=== PATIENT | male | born 1990 | race Caucasian/White ===

== ENCOUNTER 2023-12-27 20:31 | Emergency (ER) | payer MEDICAID ==
[~2023-12-27 20:31] MED LIST: AMOXICILLIN500 MG PO; NORCO 5-325 TA1 EACH PO
[2023-12-27] MEDS ORDERED: KETOROLAC TROMETHAMINE 60 MG/2 ML VIAL IM ONE (21:00)
[2023-12-27 21:01] LABS: BASOPHILS 0.7 % (0-2); EOSINOPHILS 1.6 % (0-6); HEMATOCRIT 49.4 % (35.0-50.0); HEMOGLOBIN 16.7 g/dL (12.0-18.0); LYMPHOCYTES 40.5 % (24-44); MCH 28.8 (27-36); MCHC 33.8 g/dl (30-36); MCV 85.3 fl (81-99); MONOCYTES 6.5 % (0-12); NEUTROPHILS 50.7 % (39-80); PLATELET COUNT 313 K/uL (140-440); RBC 5.79 M/ul (4.3-5.7); RDW 13.2 (10.5-15.0)
[2023-12-27 21:16] LABS: ALBUMIN 3.6 g/dL (3.4-5.0); ALBUMIN/GLOBULIN RATIO 0.86 (1.1-2.4); ANION GAP 13.5 (7-21); BILIRUBIN, TOTAL 0.3 ng/dL (0.2-1.0); BUN/CREATININE RATIO 9.75 (6.0-28.6); CALCIUM 8.5 mg/dL (8.5-10.1); CREATININE, SERUM 1.23 mg/dL (0.70-1.30); POTASSIUM 3.5 mmol/L (3.5-5.1); PROTEIN, TOTAL 7.8 g/dL (6.4-8.2)
[2023-12-27 22:02] LABS: INFLUENZA B NAA NEGATIVE (NEGATIVE); RESPIRATORY SYNCYTIAL VIR NAA NEGATIVE (NEGATIVE)
[2023-12-27] MEDS ORDERED: CYCLOBENZAPRINE10 MG PO (22:43)
[2023-12-27] MEDS ORDERED: TRAZODONE HCL50 MG PO (22:43)
[2023-12-27] MEDS ORDERED: CYCLOBENZAPRINE HCL 10 MG HOME.PACK PO ONE (22:45)
[2023-12-27 23:04] VITALS: BP 141/96
== END 2023-12-27 23:00 | disposition home or self-care (01) ==
LOC: ED 20:31
PROVIDERS: Family Medicine
DX: S16.1XXA Strain of muscle, fascia and tendon at neck level, initial encounter (principal); G47.00 Insomnia, unspecified; Z11.52 Encounter for screening for COVID-19; X58.XXXA Exposure to other specified factors, initial encounter
CPT/HCPCS: 36415; 80053; 84484; 85025; 87502; 96372; 99283; C9803; J1885; U0002

== ENCOUNTER 2024-10-26 19:52 | Emergency (ER) | payer OTHER ==
[~2024-10-26] VITALS: Ht 175.3 cm; Wt 120.7 kg
[~2024-10-26 19:52] MED LIST changes: +CYCLOBENZAPRINE10 MG PO; +TRAZODONE HCL50 MG PO
[2024-10-26] MEDS ORDERED: hydrOXYzine pamoate 50 MG HOME.PACK PO ONE (20:45)
[2024-10-26 20:50] VITALS: BP 124/78
== END 2024-10-26 20:51 | disposition home or self-care (01) ==
LOC: ED 19:52
DX: F41.9 Anxiety disorder, unspecified (principal); Z79.899 Other long term (current) drug therapy
CPT/HCPCS: 99283

== ENCOUNTER 2025-08-16 11:09 | Emergency (ER) | payer OTHER ==
[~2025-08-16] VITALS: Ht 175.3 cm; Wt 118.0 kg
[2025-08-16 12:21] LABS: BASOPHILS 0.6 % (0.2-1.2); BLOOD/HGB, URINE NEGATIVE (Negative); EOSINOPHILS 0.9 % (0.8-7.0); KETONE, URINE NEGATIVE (Negative); LEUK ESTERASE, URINE NEGATIVE (negative); LYMPHOCYTES 17.2 % (21.8-53.1); MCH 28.2 PG (25.7-32.2); MCHC 34.5 g/dL (32.3-36.5); MCV 81.9 fL (79.0-92.2); MONOCYTES 6.3 % (5.3-12.2); NEUTROPHILS 74.8 % (34.0-67.9); NITRITE, URINE NEGATIVE (negative); RBC 6.13 M/uL (4.63-6.08)
[2025-08-16 12:37] LABS: ALT (SGPT) 76.0 U/L (14-59); AST (SGOT) 32.0 U/L (15-37); GLOMERULAR FILTRATION RATE,EST 59.0 mL/min (>60); PROTEIN, TOTAL 8.0 g/dL (6.4-8.2); UREA NITROGEN 16.0 mg/dL (7-18)
[2025-08-16 13:59] VITALS: BP 113/61
== END 2025-08-16 14:09 | disposition home or self-care (01) ==
LOC: ED 11:09
PROVIDERS: Emergency Medicine
DX: F41.0 Panic disorder [episodic paroxysmal anxiety] (principal); R29.0 Tetany
CPT/HCPCS: 36415; 80053; 81003; 83690; 85025; 99284